=== PATIENT | male | born 1970 | race Caucasian/White ===

== ENCOUNTER 2019-01-17 20:27 | Inpatient (IN) | payer OTHER | END 2019-01-20 14:02 | disposition home or self-care (01) | LOC: F3N 01-18 00:30 → CED 22:37 ==

== ENCOUNTER → 2019-01-21 | Outpatient (CLI) | payer OTHER | LOC: FIMAGING 07:55 ==

== ENCOUNTER → 2019-01-25 | Outpatient (CLI) | payer OTHER | LOC: FIMAGING 09:48 ==